=== PATIENT | female | born 1940 | race Caucasian/White ===

== ENCOUNTER 2016-12-12 09:51 | Emergency (ER) | payer OTHER ==
[2016-12-12 10:08] VITALS: BMI 21.3
[2016-12-12] MEDS ORDERED: ASPIRIN 81 MG CHEWABLE TABLETS PO ONE (10:10)
[2016-12-12] MEDS ORDERED: ASPIRIN 81 MG CHEWABLE TABLETS ONE ×2 (10:20→11:27)
--- NOTE | 2016-12-12 10:26 | PDOC ---
[id number] 4d CHEST PAIN Time Seen by Provider: 12/12/16 09:56 History Source: Patient Exam Limitations: No Limitations - History of Present Illness Initial Comments: 12/12/16 10:31 76 -year-old female presents the ED with complaints of midsternal chest pain that began around 2 hours ago while sitting down. Patient describes the pressure as a tightness without radiation to her left or right chest wall. Patient also denies any palpitations, nausea, diaphoresis, or difficulty breathing. Patient states was admitted here last month and had an echocardiogram and is now scheduled for stress test this Sunday at the [facility] cardiology group. Patient currently denies dizziness abdominal pain, or recent change in medication. Patient was given nitroglycerin in route via EMS with no abnormal findings on the 12-lead. Presenting Symptoms: Chest Pain Timing/Duration: reports: constant Severity/Quality: reports: mild, pressure Location: reports: substernal Chest Pain Radiation: reports: no radiation Activities at Onset: reports: none Prior Chest Pain/Cardiac Workup: reports: Echocardiography (october 2016) Nitro Today/Relief: Yes: 0.4 mg x 1, provided by EMS Aspirin Received prior to arrival (Core Measure): Yes: 81 mg x 2 (given in ED) Associated Symptoms: Yes: Chest Pain/pressure Past History - Past Medical History Allergies/Adverse Reactions: Allergies Allergy/AdvReac Type Severity Reaction Status Date / Time morphine Allergy Mild Verified 12/12/16 10:09 aspirin Allergy Verified 12/12/16 10:09 Home Medications: Ambulatory Orders Alprazolam [Xanax] 0.25 mg PO PRN PRN 05/18/14 Ranitidine HCl [Zantac] 150 mg PO BID 08/06/15 Ranitidine [Zantac -] 150 mg PO BID tablet 10/24/16 Nebivolol HCl [Bystolic] 2.5 mg PO DAILY 12/12/16 Anemia: No Asthma: No Cancer: No Cardiac Disorders: Yes (SOB,PALPIATATIONS) CVA: No COPD: No CHF: No Dementia: No Diabetes: No GI Disorders: Yes (ULCER) Disorders: No HTN: Yes Hypercholesterolemia: No Liver Disease: No Psychiatric Problems: Yes (ANXIETY.) Seizures: No Thyroid Disease: No - Surgical History Abdominal Surgery: Yes Appendectomy: No Cardiac Surgery: No Cholecystectomy: No Lung Surgery: No Neurologic Surgery: No Orthopedic Surgery: No - Immunization History Immunization Up to Date: Yes - Psycho/Social/Smoking Cessation Hx Anxiety: Yes Suicidal Ideation: No Smoking Status: No Smoking History: Never smoked Have you smoked in the past 12 months: No Number of Cigarettes Smoked Daily: 0 Information on smoking cessation initiated: No Hx Alcohol Use: No Drug/Substance Use Hx: No Substance Use Type: None Hx Substance Use Treatment: No Patient Lives Alone: No Lives with/in: spouse/SO Cardiac Specific PMH - Complaint Specific PMHX GERD: Yes Pacemaker: No Review of Systems - Review of Systems Able to Perform ROS?: Yes Constitutional: No: Symptoms Reported HEENTM: No: Symptoms Reported Respiratory: No: Symptoms reported Cardiac (ROS): Yes: Chest Pain ABD/GI: No: Symptoms Reported : No: Symptoms Reported Musculoskeletal: No: Symptoms Reported Integumentary: No: Symptoms Reported Neurological: No: Symptoms reported Endocrine: No: Symptoms Reported Hematologic/Lymphatic: No: Symptoms Reported *Physical Exam - Vital Signs Last Vital Signs Temp Pulse Resp BP Pulse Ox 98.1 F 69 16 138/87 99 12/12/16 15:21 12/12/16 15:21 12/12/16 15:21 12/12/16 15:21 12/12/16 15:21 - Physical Exam General Appearance: Yes: Nourished, Appropriately Dressed. No: Apparent Distress HEENT: positive: EOMI, ALBERTINA. negative: Pale Conjunctivae Neck: positive: Supple Respiratory/Chest: positive: Lungs Clear, Normal Breath Sounds. negative: Respiratory Distress, Accessory Muscle Use Cardiovascular: positive: Regular Rhythm, Regular Rate. negative: Murmur Gastrointestinal/Abdominal: positive: Soft. negative: Tenderness Extremity: positive: Normal Capillary Refill. negative: Pedal Edema Integumentary: positive: Normal Color, Warm, Moist Neurologic: positive: Motor Strength 5/5 (ambulatory) Heart Score/ECG Review - History History: Slightly suspicious - Electrocardiogram EKG: Normal - Age Age: >/= 65 - Risk Factors Risk Factors Heart Score: Yes Hx Hypertension, Yes Positive family hx of cardiac disease Based on the list above the patient has:: 1-2 risk factors - Troponin Troponin: </= normal limit - Score Heart Score - Total: 3 #2 ECG reviewed & interpreted by me at: 15:10 General ECG Interpretation: Sinus Rhythm (rate 71) Compared to previous ECG there are: No significant change - ECG Intrepretation Rhythm: Regular Rhythm (Rate 67. No ST depression or elevation. Inverted T waves seen in aVR and lead 3. unchanged from previous) ED Treatment Course - LABORATORY CBC & Chemistry Diagram: 12/12/16 10:17 12/12/16 10:17 - ADDITIONAL ORDERS Additional order review: 12/12/16 10:17 RBC 4.24 MCV 96.8 H MCHC 34.1 RDW 13.1 MPV 8.8 Neutrophils % 75.4 Lymphocytes % 16.7 D Monocytes % 6.1 Eosinophils % 1.0 D Basophils % 0.8 - RADIOLOGY Radiology Studies Ordered: Category Date Time Status CHEST PA & LAT [RAD] Stat Radiology 12/12/16 10:10 Completed - Medications Given in the ED: ED Medications Discontinued Medications Generic Name Dose Route Start Last Admin Trade Name Freq PRN Reason Stop Dose Admin Aspirin 162 mg 12/12/16 10:10 12/12/16 10:18 Asa - PO 12/12/16 10:11 162 mg ONCE ONE Administration Medical Decision Making - Medical Decision Making 12/12/16 10:29 Patient with pain to the midsternal region for the past 2 hours. Patient given nitroglycerin in route. Patient ordered for aspirin here in the ER since patient does not have an allergic reaction to aspirin and was told not to take it since she has PUD. Patient concerning for IN versus ACS. Patient is pending a stress test to be done this Sunday. Case will be discussed with Dr. Roque who saw patient here last month in hospital while she was admitted for similar complaints. 12/12/16 11:37 Dr. Gomez discussed case with Dr. Roque, offset label rewinder who consulted on patient last month and states patient had an atypical presentation with no significant findings on echo and since patient has a scheduled stress test this Sunday, he recommends to perform 2 troponins and EKG. If negative patient may follow-up on Sunday. Laboratory Tests 12/12/16 12/12/16 12/12/16 10:16 10:17 10:17 WBC 5.8 Hgb 14.0 Hct 41.0 Neutrophils % 75.4 INR 1.09 Sodium 144 Potassium 4.1 Chloride 106 Carbon Dioxide 30 Anion Gap 8 BUN 17 D Creatinine 0.7 Random Glucose 96 Magnesium 2.1 Creatine Kinase 29 Troponin I < 0.02 12/12/16 15:09 patient remains asymptomatic. Patient be discharged home to follow-up with cardiology this Sunday. Selected Entries 12/12/16 14:53 Temperature 98 F Pulse Rate [ 75 Right] Respiratory 17 Rate Blood Pressure 131/67 [Right Arm] O2 Sat by Pulse 99 Oximetry (%) Laboratory Tests 12/12/16 14:23 Creatine Kinase 32 Troponin I < 0.02 *DC/Admit/Observation/Transfer Diagnosis at time of Disposition: Chest pain Qualifiers: Chest pain type: other chest pain Qualified Code(s): R07.89 - Other chest pain - Discharge Dispostion Disposition: HOME Condition at time of disposition: Improved - Referrals Referrals: STAFF,NOT ON [Primary Care Provider] - David Roque MD [Staff Physician] - - Patient Instructions Printed Discharge Instructions: DI for Atypical Chest Pain Additional Instructions: Please continue taking her medication as previously prescribed. Please follow-up with offset label rewinder this Sunday for stress test. If your symptoms return or worsen please come to the ED immediately.
[2016-12-12 10:52] LABS: BASOPHIL 0.8 % (0-2.0); MCHC 34.1 g/dl (32.0-36.0); MEAN CELL VOLUME 96.8 fl (80-96); MEAN PLT VOLUME 8.8 fl (7.5-11.1); NEUTROPHILS 75.4 % (42.8-82.8); PLATELET COUNT 131 K/MM3 (134-434); RDW 13.1 % (11.6-15.6); WHITE BLOOD COUNT 5.8 K/mm3 (4.0-10.0)
[2016-12-12 11:22] LABS: ALBUMIN 3.5 g/dl (3.4-5.0); ANION GAP 8 (8-16); BILIRUBIN,TOTAL 0.4 mg/dL (0.2-1.0); CALCIUM 8.9 mg/dL (8.5-10.1); CO2 30 mmol/L (21-32); CREATININE 0.7 mg/dL (0.55-1.02); GLUCOSE,RANDOM 96 mg/dL (74-106); MAGNESIUM 2.1 mg/dL (1.8-2.4); SGOT/AST 18 U/L (15-37); SGPT/ALT 24 U/L (12-78)
[2016-12-12 11:23] LABS: INR 1.09 (0.82-1.09)
[2016-12-12 11:25] LABS: ALK PHOS 61 U/L (45-117); TROPONIN I < 0.02 ng/ml (0.00-0.05)
[2016-12-12 15:04] LABS: TROPONIN I < 0.02 ng/ml (0.00-0.05)
[2016-12-12 15:22] VITALS: BP 138/87; PULSE 69; TEMP 98.1
--- NOTE | 2016-12-12 23:11 | EKG ---
Test Reason : Blood Pressure : / mmHG Vent. Rate : 071 BPM Atrial Rate : 071 BPM P-R Int : 158 ms QRS Dur : 082 ms QT Int : 402 ms P-R-T Axes : 045 -12 006 degrees QTc Int : 436 ms NORMAL SINUS RHYTHM NORMAL ECG WHEN COMPARED WITH ECG OF 12-DEC-2016 10:00, NO SIGNIFICANT CHANGE WAS FOUND Confirmed by DL PRATT MD ([id number]) on 12/12/2016 11:10:44 PM Referred By: Confirmed By:DL PRATT MD
--- NOTE | 2016-12-12 23:16 | EKG ---
Test Reason : Blood Pressure : / mmHG Vent. Rate : 067 BPM Atrial Rate : 067 BPM P-R Int : 150 ms QRS Dur : 080 ms QT Int : 408 ms P-R-T Axes : 038 -09 -04 degrees QTc Int : 431 ms NORMAL SINUS RHYTHM NONSPECIFIC ST AND T WAVE ABNORMALITY ABNORMAL ECG WHEN COMPARED WITH ECG OF 23-OCT-2016 10:04, PREMATURE VENTRICULAR COMPLEX AND PREMATURE ATRIAL COMPLES ARE NOT SEEN Confirmed by SANTA HARDY, DL ([id number]) on 12/12/2016 11:16:14 PM Referred By: Confirmed By:DL PRATT MD
== END 2016-12-12 15:49 | disposition home or self-care (01) ==
LOC: JER 09:51
DX: R07.89 Other chest pain (principal); F41.9 Anxiety disorder, unspecified; I10 Essential (primary) hypertension
CPT/HCPCS: 36415; 71020-TC; 80053; 82550; 83735; 84484; 85025; 85610; 93005; 93010; 99285-25

== ENCOUNTER 2017-07-29 12:10 | Emergency (ER) | payer OTHER ==
[2017-07-29 12:29] VITALS: BP 138/73; PULSE 67; TEMP 99; BMI 21.9
--- NOTE | 2017-07-29 13:19 | PDOC ---
History of Present Illness - General Chief Complaint: Cold Symptoms Stated Complaint: SORE THROAT, WEAKNESS Time Seen by Provider: 07/29/17 12:47 History Source: Patient Exam Limitations: No Limitations - History of Present Illness Initial Comments: 07/29/17 13:17 77 yr female c/o sore throat chills for 4 days with burning on urination. Pt denies nvd no cough or sob. Severity: reports: mild Past History - Past Medical History Allergies/Adverse Reactions: Allergies Allergy/AdvReac Type Severity Reaction Status Date / Time morphine Allergy Mild Verified 07/29/17 12:25 aspirin Allergy Verified 07/29/17 12:25 Home Medications: Ambulatory Orders Alprazolam [Xanax] 0.25 mg PO PRN PRN 05/18/14 Ranitidine HCl [Zantac] 150 mg PO BID 08/06/15 Ranitidine [Zantac -] 150 mg PO BID tablet 10/24/16 Nebivolol HCl [Bystolic] 5 mg PO DAILY 12/12/16 Ondansetron [Zofran Odt -] 4 mg SL TID PRN #12 od.tablet 07/29/17 Anemia: No Asthma: No Cancer: No Cardiac Disorders: Yes (SOB,PALPIATATIONS) CVA: No COPD: No CHF: No Dementia: No Diabetes: No GI Disorders: Yes (ULCER) Disorders: No HTN: Yes Hypercholesterolemia: No Liver Disease: No Psychiatric Problems: Yes (ANXIETY.) Seizures: No Thyroid Disease: No - Surgical History Abdominal Surgery: Yes Appendectomy: No Cardiac Surgery: No Cholecystectomy: No Lung Surgery: No Neurologic Surgery: No Orthopedic Surgery: No - Immunization History Immunization Up to Date: Yes - Psycho/Social/Smoking Cessation Hx Anxiety: Yes Suicidal Ideation: No Smoking Status: No Smoking History: Never smoked Have you smoked in the past 12 months: No Number of Cigarettes Smoked Daily: 0 Hx Alcohol Use: No Drug/Substance Use Hx: No Substance Use Type: None Hx Substance Use Treatment: No Respiratory Specific PMHX - Complaint Specific PMHX Angina: No Bronchitis: No Pneumonia: No Pulmonary Embolus: No TB (Tuberculosis): No Review of Systems - Review of Systems Able to Perform ROS?: Yes Is the patient limited Urdu proficient: No Constitutional: Yes: Symptoms Reported, Fever HEENTM: Yes: Symptoms Reported, Throat Pain Respiratory: No: Symptoms reported Cardiac (ROS): No: Symptoms Reported ABD/GI: No: Symptoms Reported : No: Symptoms Reported Musculoskeletal: No: Symptoms Reported Integumentary: No: Symptoms Reported Neurological: No: Symptoms reported *Physical Exam - Vital Signs Last Vital Signs Temp Pulse Resp BP Pulse Ox 99 F 67 19 138/73 97 07/29/17 12:25 07/29/17 12:25 07/29/17 12:25 07/29/17 12:25 07/29/17 12:25 - Physical Exam General Appearance: Yes: Nourished, Appropriately Dressed HEENT: positive: EOMI, ALBERTINA, Normal ENT Inspection, Pharyngeal Erythema. negative: Tonsillar Exudate, Tonsillar Erythema Neck: positive: Supple. negative: Tender Respiratory/Chest: positive: Lungs Clear, Normal Breath Sounds Cardiovascular: positive: Regular Rhythm, Regular Rate Gastrointestinal/Abdominal: positive: Normal Bowel Sounds, Soft. negative: Tender Musculoskeletal: positive: Normal Inspection Extremity: positive: Normal Capillary Refill, Normal Inspection, Normal Range of Motion Integumentary: positive: Normal Color, Dry, Warm Neurologic: positive: Fully Oriented, Alert, Normal Mood/Affect, Normal Response , Motor Strength 5/5 *DC/Admit/Observation/Transfer Diagnosis at time of Disposition: Viral illness - Discharge Dispostion Disposition: HOME Condition at time of disposition: Good - Prescriptions Prescriptions: Ondansetron [Zofran Odt -] 4 mg SL TID PRN #12 od.tablet PRN Reason: Nausea - Patient Instructions Printed Discharge Instructions: How to Avoid a Cold or Flu, DI for Common Cold Additional Instructions: gargle with warm salt water 4-5 times a day take tylenol as directed for pain bland diet as tolerated if your stomach bothers you increase vitamin c and zinc in your diet follow with your doctor in 3-4 days if any worsening symptoms negative rapid strep
[2017-07-29 13:36] LABS: URINE APPEARANCE CLEAR; URINE BILIRUBIN NEGATIVE (NEGATIVE); URINE BLOOD 1+ (NEGATIVE); URINE COLOR LTYELLOW; URINE GLUCOSE (UA) NEGATIVE (NEGATIVE); URINE KETONE NEGATIVE (NEGATIVE); URINE LEUK ESTERASE 1+ (NEGATIVE); URINE NITRITE NEGATIVE (NEGATIVE); URINE PROTEIN NEGATIVE (NEGATIVE); URINE UROBILINOGEN NEGATIVE mg/dL (0.2-1.0)
[2017-07-29 13:40] LABS: URINE RBC <1 /hpf (0-3); URINE WBC 4 /hpf (3-5)
[2017-07-29] MEDS ORDERED: ONDANSETRON *ODT* 4 MG TABLET SL ONE (14:15)
[2017-07-29] MEDS ORDERED: ONDANSETRON *ODT* 4 MG TABLET ONE (14:16)
== END 2017-07-29 14:25 | disposition home or self-care (01) ==
LOC: JERFT 12:10
DX: B34.9 Viral infection, unspecified (principal); I10 Essential (primary) hypertension; F41.9 Anxiety disorder, unspecified
CPT/HCPCS: 81003; 81015; 87070; 87086; 87430; 99281-25

== ENCOUNTER 2017-08-02 06:29 | Day surgery (SDC) | payer OTHER ==
[2017-07-30 16:42] VITALS: BMI 21.1
[2017-08-02] MEDS ORDERED: BUPIVACAINE HCL/PF 0.5% (5MG/ML) 10 ML VIAL ONE (07:36)
[2017-08-02] MEDS ORDERED: MIDAZOLAM HCL 2 MG/2 ML SINGLE DOSE VIAL ONE ×2 (07:53)
[2017-08-02] MEDS ORDERED: SUCCINYLCHOLINE CHLORIDE 200 MG/10 ML VIAL ONE (07:58)
[2017-08-02] MEDS ORDERED: PROPOFOL 20 ML ONE (07:58)
[2017-08-02] MEDS ORDERED: LIDOCAINE HCL/PF 2% SDV 5ML VIAL ONE ×2 (07:58→08:19)
[2017-08-02] MEDS ORDERED: ceFAZolin SODIUM 1 GM VIAL IVPB ONE (08:05)
[2017-08-02] MEDS ORDERED: DEXAMETHASONE SOD PHOSPHATE 4 MG/1 ML VIAL ONE (08:19)
[2017-08-02] MEDS ORDERED: ceFAZolin SODIUM 1 GM VIAL ONE (08:19)
[2017-08-02] MEDS ORDERED: BUPIVACAINE HCL/PF 0.5% (5MG/ML) 10 ML VIAL IJ ONE ×2 (08:21→08:48)
--- NOTE | 2017-08-02 08:55 | OP ---
Operative Note - Note: Operative Date: 08/02/17 Pre-Operative Diagnosis: right knee medial and lateral meniscus tear, OA Operation: right knee partial medial and lateral meniscectomy, debridement chondroplasty Post-Operative Diagnosis: Same as Pre-op Surgeon: Thaddeus Apodaca Anesthesiologist/MANAGER COMPANY: Concha Tilley MD Anesthesia: General, Local Specimens Removed: shavings Estimated Blood Loss (mls): 50 Drains, Volume Out (mls): 0 Blood Volume Replaced (mls): 0 Fluid Volume Replaced (mls): 500 Operative Report Dictated: Yes
--- NOTE | 2017-08-02 08:57 | HP ---
Satellite [facility] - Chief Complaint Chief Complaint: right knee pain History Source: Patient Limitations to Obtaining History: No Limitations - Past Medical History Allergies/Adverse Reactions: Allergies Allergy/AdvReac Type Severity Reaction Status Date / Time morphine Allergy Mild Verified 07/30/17 16:30 aspirin Allergy Verified 07/30/17 16:30 SALES STOCK ASSOCIATE: Yes: Migraine Cardiovascular: Yes: CAD (non-obs cath 2007), HTN, Hyperlipdemia, Other (PVCs) Gastrointestinal: Yes: Other (PUD) - Current Medications Current Medications: Home Medications Medication Instructions Recorded Alprazolam [Xanax] 0.25 mg PO PRN PRN 05/18/14 Nebivolol HCl [Bystolic] 5 mg PO DAILY 12/12/16 Pantoprazole Sodium [Protonix] 40 mg PO DAILY 07/30/17 Satellite Physical Exam - Physical Examination Vital Signs: Vital Signs Period Temp Pulse Resp BP Sys/[place] Pulse Ox Last 24 Hr 98.2 F 80 16 133/70 98 General Appearance: Well Nourished ENT: Clear Lung: Clear to auscultation Heart: Regular rate & rhythm Breasts: Soft Abdomen: Soft Extremities: No edema Satellite Impression/Plan - Impression/Plan Impression: right knee MM and LM tear, OA Operative Procedure: right knee arthroscopy, partial medial and lateral meniscectomy, debridement chondroplasty Date to be Performed: 08/02/17
[2017-08-02] MEDS ORDERED: ONDANSETRON 4 MG/2 ML VIAL IVPUSH PRN (09:08)
[2017-08-02] MEDS ORDERED: PROMETHAZINE HCL 25 MG/1 ML VIAL IVPUSH PRN (09:08)
[2017-08-02] MEDS ORDERED: oxyCODONE HCL 5 MG TABLET PO PRN (09:08)
[2017-08-02] MEDS ORDERED: LACTATED RINGERS SOLUTION 1,000 ML IV SCH (09:15)
[2017-08-02 10:11] VITALS: TEMP 97.4
[2017-08-02 11:35] VITALS: BP 150/67; PULSE 90
--- NOTE | 2017-08-02 11:58 | OP ---
DATE OF OPERATION: 08/02/2017 PREOPERATIVE DIAGNOSIS: Right knee pain, medial and lateral meniscus tear and osteoarthritis. POSTOPERATIVE DIAGNOSIS: Right knee pain, medial and lateral meniscus tear and osteoarthritis. PROCEDURE: Right knee arthroscopy, partial medial and lateral meniscectomy, and debridement with chondroplasty. SURGEON: Thaddeus Apodaca MD VEGETABLE PREPARER: None. ANESTHESIA: Dr. Tilley, LMA anesthesia, 20 mL 0.0.5% Marcaine. DRAINS: None. COMPLICATIONS: None. SPECIMEN: Arthroscopic shavings. BLOOD LOSS: 50 mL. BLOOD GIVEN: None. FLUID REPLACEMENT: 500 mL. INDICATIONS: This patient is a 77-year-old female with a preoperative diagnosis of right knee pain and medial and lateral meniscus tear and osteoarthritis. After understanding the potential risks, complications, alternatives, and benefits to surgery versus nonsurgical treatment, the patient elected to undergo this procedure. She understands that she will not get complete relief of her pain because of the osteoarthritis. She still may need other surgery including a partial or total knee replacement. DESCRIPTION OF PROCEDURE: The patient was brought to the operating room. Peripheral IV placed. IV sedation given. Then 1 g of IV Ancef was given. LMA anesthesia was induced. Ample padding was placed around the right thigh. The patient was placed in the C-clamp leg ivy with a Styrofoam ring. The right lower extremity was prepped and draped in usual sterile fashion, elevated, exsanguinated with an Esmarch bandage and tourniquet inflated to 275 mmHg. The superior and medial outflow portal was established. Lateral port was established. Under direct visualization, the medial portal was established with a spinal needle. Diagnostic arthroscopy was performed. In the medial component, the patient was seen to have a complex tear of the body and posterior horn of the medial meniscus. This was debrided with the straight vascular forceps, the right biter, and the curved shaver. Photographs were taken before and after. The patient had grade 1 chondromalacia of the medial and tibial plateau but areas of grade 3 changes at the medial femoral condyle. The intercondylar notch looked good. In the lateral compartment, the patient had a complex tear of most of the lateral meniscus. This was debrided, and in the end, perhaps 25% of the lateral meniscus remained. It was completely shredded prior to meniscectomy. This also revealed osteoarthritis of the lateral compartment grade 2. In the patellofemoral joint, there was a lot of synovium. This was debrided, and this revealed grade 4 osteoarthritis of the femoral trochlea and grade 1 changes underneath the patella. Gentle debridement chondroplasty was performed. The area was copiously irrigated and washed out. All debris and excess saline was removed. This patient would not be a candidate for the partial knee replacement. She would need the total knee replacement. The arthroscopy portal was closed with 3-0 nylon sutures. The area was then washed and dried and covered with Xeroform, 4x4 gauze, Webril, and an Kilo bandage. Tourniquet was taken down after a total tourniquet time of 25 minutes. There were no complications during the case. The patient was extubated and brought to the ambulatory recovery in stable condition. Iliana [id number]
--- NOTE | 2017-08-03 13:37 | PATH ---
Surgical Pathology Report Patient Name: FADIA ETIENNE [facility]. Rec. #: [id number] /Age/Gender: 1940 (Age: 77) / F Account: [id number] Location: [facility] SUR[facility]ICAL Taken: 08/02/2017 Received: 08/02/2017 Reported: 08/03/2017 Physicians: Thaddeus Apodaca M.D. Specimen(s) Received RIGHT KNEE SHAVINGS Clinical History Right meniscus tear Final Diagnosis KNEE, RIGHT, ARTHROSCOPIC SHAVING: FIBROCARTILAGE WITH MYXOID DEGENERATIVE CHANGES, ALONG WITH PORTIONS OF SYNOVIUM WITH CHRONIC INFLAMMATION AND HYALINE CARTILAGE. Electronically Signed Macario Aldridge M.D. Gross Description Received in formalin, labeled "right knee shavings," is a 4.5 x 4.0 x 0.4 cm. aggregate of king-yellow soft tissue fragments. A career services representative portion is submitted in one cassette. /08/02/201708/02/2017
== END 2017-08-02 11:50 | disposition home or self-care (01) ==
LOC: JASU-SURG 06:29
PROVIDERS: ATTEND Orthopaedic Surgery
PROC: 0SBC4ZZ Excision of Right Knee Joint, Percutaneous Endoscopic Approach (ICD-10-PCS; 2017-08-02)
PROC: 0SBC4ZZ Excision of Right Knee Joint, Percutaneous Endoscopic Approach (ICD-10-PCS; principal; 2017-08-02 08:00)
DX: S83.281A Other tear of lateral meniscus, current injury, right knee, initial encounter (principal); S83.241A Other tear of medial meniscus, current injury, right knee, initial encounter; X58.XXXA Exposure to other specified factors, initial encounter; Y93.9 Activity, unspecified; Y92.9 Unspecified place or not applicable; Y99.9 Unspecified external cause status; M17.11 Unilateral primary osteoarthritis, right knee
CPT/HCPCS: 88304-TC; 94760; 97116-GP

== ENCOUNTER 2017-12-09 12:19 | Emergency (ER) | payer OTHER ==
[2017-12-09 12:25] VITALS: BP 152/81; PULSE 81; TEMP 98.6; BMI 20.5
--- NOTE | 2017-12-09 13:20 | PDOC ---
History of Present Illness - General Chief Complaint: Sore Throat Stated Complaint: THROAT PAIN Time Seen by Provider: 12/09/17 12:55 History Source: Patient Exam Limitations: No Limitations - History of Present Illness Initial Comments: 12/09/17 13:35 37-year-old female complaining of left ear pain and lower left throat pain. Patient was seen by her PCP a few days ago was given amoxicillin but states has been unable to take it since it is causing her GI upset and decided come to the ER for further evaluation. Patient denies fever, chills but states left ear pain and left throat pain has subsided slightly since onset. Patient denies neck stiffness, difficulty swallowing, change in appetite. Timing/Duration: reports: other (5 days) Severity: reports: mild Associated Symptoms: reports: earache, sore throat Past History - Travel Traveled outside of the country in the last 30 days: No - Past Medical History Allergies/Adverse Reactions: Allergies Allergy/AdvReac Type Severity Reaction Status Date / Time morphine Allergy Mild Verified 12/09/17 12:25 aspirin Allergy Verified 12/09/17 12:25 Home Medications: Ambulatory Orders Alprazolam [Xanax] 0.25 mg PO PRN PRN 05/18/14 Nebivolol HCl [Bystolic] 5 mg PO DAILY 12/12/16 Clopidogrel Bisulfate [Plavix -] 75 mg PO DAILY #30 tablet 09/28/17 Nitroglycerin Sublingual [Nitrostat -] 0.3 mg SL [id number] #1 btl 09/28/17 Anemia: No Asthma: No Cancer: No Cardiac Disorders: Yes (SOB,PALPIATATIONS) CVA: No COPD: No CHF: No Dementia: No Diabetes: No GI Disorders: Yes (ULCER) Disorders: No HTN: Yes Hypercholesterolemia: No Liver Disease: No Psychiatric Problems: Yes (ANXIETY.) Seizures: No Thyroid Disease: No - Surgical History Abdominal Surgery: No Appendectomy: No Cardiac Surgery: No Cholecystectomy: No Lung Surgery: No Neurologic Surgery: No Orthopedic Surgery: No - Immunization History Immunization Up to Date: Yes - Suicide/Smoking/Psychosocial Hx Smoking Status: No Smoking History: Never smoked Have you smoked in the past 12 months: No Number of Cigarettes Smoked Daily: 0 Hx Alcohol Use: No Drug/Substance Use Hx: No Substance Use Type: None Hx Substance Use Treatment: No Patient Lives Alone: No Lives with/in: spouse/SO Respiratory Specific PMHX - Complaint Specific PMHX Angina: No Bronchitis: No Pneumonia: No Pulmonary Embolus: No TB (Tuberculosis): No Review of Systems - Review of Systems Able to Perform ROS?: No Constitutional: No: Symptoms Reported HEENTM: Yes: Ear Pain, Throat Pain Respiratory: No: Symptoms reported Cardiac (ROS): No: Symptoms Reported ABD/GI: No: Symptoms Reported : No: Symptoms Reported Musculoskeletal: No: Symptoms Reported Integumentary: No: Symptoms Reported Neurological: No: Symptoms reported *Physical Exam - Vital Signs Last Vital Signs Temp Pulse Resp BP Pulse Ox 98.6 F 81 18 152/81 100 12/09/17 12:21 12/09/17 12:21 12/09/17 12:21 12/09/17 12:21 12/09/17 12:21 - Physical Exam General Appearance: Yes: Nourished, Appropriately Dressed. No: Apparent Distress HEENT: positive: EOMI, ALBERTINA, Pharyngeal Erythema (mild left), TM Erythema (mild left). negative: Tonsillar Exudate, Tonsillar Erythema Neck: positive: Normal Thyroid, Supple. negative: Lymphadenopathy (R), Lymphadenopathy (L) Respiratory/Chest: positive: Lungs Clear, Normal Breath Sounds. negative: Respiratory Distress, Accessory Muscle Use Cardiovascular: positive: Regular Rhythm, Regular Rate. negative: Murmur Gastrointestinal/Abdominal: positive: Soft. negative: Tenderness Integumentary: positive: Normal Color, Warm, Moist Neurologic: positive: Motor Strength 5/5 (ambulatory) Medical Decision Making - Medical Decision Making 12/09/17 13:37 Pt here for 2nd opinion for left ear and throat pain. Pt took 2 days of amoxicillin but stopped due to gi upset. Pt on exam with mild erythema to left tm and pharyngeal region. Rapid strep sent 12/09/17 13:57 Rapid strep negative. Patient will be discharged home with supportive care including warm salt water gargles, Motrin for discomfort and soft nonabrasive foods. *DC/Admit/Observation/Transfer Diagnosis at time of Disposition: Sore throat (viral) - Discharge Dispostion Disposition: HOME Condition at time of disposition: Good - Referrals - Patient Instructions Printed Discharge Instructions: Sore Throat Additional Instructions: I recommend warm salt water gargles, Motrin for discomfort and soft nonabrasive foods. - Post Discharge Activity
== END 2017-12-09 14:00 | disposition home or self-care (01) ==
LOC: JER 12:19 → JERFT 12:19
DX: J02.9 Acute pharyngitis, unspecified (principal); B97.89 Other viral agents as the cause of diseases classified elsewhere; I10 Essential (primary) hypertension; F41.9 Anxiety disorder, unspecified; Z87.19 Personal history of other diseases of the digestive system
CPT/HCPCS: 87070; 87430; 99281-25

== ENCOUNTER 2018-01-30 08:04 | Emergency (ER) | payer OTHER ==
[2018-01-30 08:10] VITALS: BMI 20.5
--- NOTE | 2018-01-30 08:17 | PDOC ---
History of Present Illness - General Chief Complaint: Pain, Acute Stated Complaint: ABDOMINAL PAIN Time Seen by Provider: 01/30/18 08:17 - History of Present Illness Initial Comments: 77 year old female with PMH of anxiety, GERD, small hiatal hernia, and HTN who presents to the ED with lower abdominal pain since this morning at 8 AM. States that she has had some urinary frequency with some discomfort as well. Had some slight nausea today but denies vomiting, diarrhea, constipation, fevers, chills , constipation, or other symptoms. 01/30/18 10:09 Past History - Past Medical History Allergies/Adverse Reactions: Allergies Allergy/AdvReac Type Severity Reaction Status Date / Time morphine Allergy Mild Verified 01/30/18 08:06 aspirin Allergy Verified 01/30/18 08:06 Home Medications: Ambulatory Orders Alprazolam [Xanax] 0.25 mg PO PRN PRN 05/18/14 Nebivolol HCl [Bystolic] 5 mg PO DAILY 12/12/16 Clopidogrel Bisulfate [Plavix -] 75 mg PO DAILY #30 tablet 09/28/17 Nitroglycerin Sublingual [Nitrostat -] 0.3 mg SL [id number] #1 btl 09/28/17 Ciprofloxacin/Ciprofloxa HCl [Cipro Xr 500 mg Tablet] 500 mg PO DAILY #3 tbmp.24hr 01/30/18 Anemia: No Asthma: No Cancer: No Cardiac Disorders: Yes (SOB,PALPIATATIONS) CVA: No COPD: No CHF: No Dementia: No Diabetes: No GI Disorders: Yes (ULCER) Disorders: No HTN: Yes Hypercholesterolemia: No Liver Disease: No Psychiatric Problems: Yes (ANXIETY.) Seizures: No Thyroid Disease: No - Surgical History Abdominal Surgery: No Appendectomy: No Cardiac Surgery: No Cholecystectomy: No Lung Surgery: No Neurologic Surgery: No Orthopedic Surgery: No - Immunization History Immunization Up to Date: Yes - Suicide/Smoking/Psychosocial Hx Smoking Status: No Smoking History: Never smoked Have you smoked in the past 12 months: No Number of Cigarettes Smoked Daily: 0 Hx Alcohol Use: No Drug/Substance Use Hx: No Substance Use Type: None Hx Substance Use Treatment: No Review of Systems - Review of Systems Constitutional: No: Chills, Diaphoresis, Fever HEENTM: No: Blurred Vision Respiratory: No: Cough, Orthopnea, Shortness of Breath Cardiac (ROS): No: Chest Pain, Irregular Heart Rate ABD/GI: Yes: Nausea. No: Constipated, Diarrhea, Vomiting : Yes: Burning, Dysuria. No: Discharge, Hematuria Integumentary: No: Bruising, Change in Color, Erythema, Flushing, Lesions, Lumps Neurological: No: Headache, Numbness, Paresthesia *Physical Exam - Vital Signs Last Vital Signs Temp Pulse Resp BP Pulse Ox 98.5 F 80 19 153/80 97 01/30/18 08:06 01/30/18 08:06 01/30/18 08:06 01/30/18 08:06 01/30/18 08:06 - Physical Exam General Appearance: Yes: Nourished, Appropriately Dressed. No: Apparent Distress HEENT: positive: EOMI, [place], Normal ENT Inspection, Normal Voice Neck: positive: Trachea midline, Normal Thyroid, Supple. negative: Tender, Rigid Respiratory/Chest: positive: Lungs Clear, Normal Breath Sounds. negative: Chest Tender, Respiratory Distress, Accessory Muscle Use Cardiovascular: positive: Regular Rhythm, Regular Rate Gastrointestinal/Abdominal: positive: Normal Bowel Sounds, Flat, Soft. negative : Tender Musculoskeletal: positive: Normal Inspection. negative: Decreased Range of Motion Extremity: positive: Normal Capillary Refill, Normal Inspection, Normal Range of Motion. negative: Tender Integumentary: positive: Normal Color, Dry, Warm Neurologic: positive: Fully Oriented, Alert, Normal Mood/Affect, Normal Response , Motor Strength 5/5 ED Treatment Course - LABORATORY CBC & Chemistry Diagram: 01/30/18 09:10 01/30/18 09:10 Medical Decision Making - Medical Decision Making 77 year old female with suprapubic pain, benign abdominal exam, stable vitals, afebrile, and 1+ leuk esterase on her UA. This is concerning for urinary tract infection so will treat with ciprofloxacin 500 ER QD x 3 days. 01/30/18 10:58 *DC/Admit/Observation/Transfer Diagnosis at time of Disposition: Cystitis - Discharge Dispostion Disposition: HOME Condition at time of disposition: Improved Admit: No - Prescriptions Prescriptions: Ciprofloxacin/Ciprofloxa HCl [Cipro Xr 500 mg Tablet] 500 mg PO DAILY #3 tbmp.24hr - Referrals Referrals: ON STAFF,NOT [Primary Care Provider] - Waylon Cho MD [Staff Physician] - - Patient Instructions Printed Discharge Instructions: DI for Acute Cystitis Additional Instructions: You have an infection in your urine, please take the antibiotics as described. Please return to the ED if your symptoms do not improve in a few days. Please follow up with Dr. Cho for your primary care needs. - Post Discharge Activity
[2018-01-30 09:23] LABS: BASO % 0.9 % (0-2.0); EOS % 1.4 % (0-4.5); HEMATOCRIT 41.3 % (32.4-45.2); HEMOGLOBIN 14.1 GM/dL (10.7-15.3); LYMPH % 17.3 % (8-40); MCH 32.9 pg (25.7-33.7); MCHC 34.2 g/dl (32.0-36.0); MEAN CELL VOLUME 96.1 fl (80-96); MEAN PLT VOLUME 8.8 fl (7.5-11.1); MONO % 5.7 % (3.8-10.2); NEUT % 74.7 % (42.8-82.8); PLATELET COUNT 151 K/MM3 (134-434); RDW 12.9 % (11.6-15.6); WHITE BLOOD COUNT 5.2 K/mm3 (4.0-10.0)
[2018-01-30 09:26] LABS: URINE APPEARANCE CLEAR; URINE BILIRUBIN NEGATIVE (NEGATIVE); URINE BLOOD 1+ (NEGATIVE); URINE COLOR STRAW; URINE GLUCOSE (UA) NEGATIVE (NEGATIVE); URINE KETONE NEGATIVE (NEGATIVE); URINE NITRITE NEGATIVE (NEGATIVE); URINE PROTEIN NEGATIVE (NEGATIVE); URINE UROBILINOGEN NEGATIVE mg/dL (0.2-1.0)
[2018-01-30 09:32] LABS: URINE LEUK ESTERASE 1+ (NEGATIVE)
[2018-01-30 09:33] LABS: URINE MUCUS RARE
--- NOTE | 2018-01-30 09:54 | EKG ---
Test Reason : Blood Pressure : / mmHG Vent. Rate : 066 BPM Atrial Rate : 066 BPM P-R Int : 150 ms QRS Dur : 074 ms QT Int : 408 ms P-R-T Axes : 043 -12 -15 degrees QTc Int : 427 ms POOR DATA QUALITY, INTERPRETATION MAY BE ADVERSELY AFFECTED NORMAL SINUS RHYTHM NONSPECIFIC ST AND T WAVE ABNORMALITY ABNORMAL ECG WHEN COMPARED WITH ECG OF 27-SEP-2017 13:00, NONSPECIFIC T WAVE ABNORMALITY NOW EVIDENT IN LATERAL LEADS Confirmed by STEFFANY CONRAD MD ([id number]) on 01/30/2018 9:53:59 AM Referred By: Confirmed By:STEFFANY CONRAD MD
[2018-01-30 09:57] LABS: ALBUMIN 3.8 g/dl (3.4-5.0); ALK PHOS 68 U/L (45-117); ANION GAP 10 (8-16); BILIRUBIN,TOTAL 0.4 mg/dL (0.2-1.0); BLOOD UREA NITROGEN 20 mg/dL (7-18); CALCIUM 8.9 mg/dL (8.5-10.1); CHLORIDE 104 mmol/L (98-107); CO2 27 mmol/L (21-32); CREATININE 0.7 mg/dL (0.55-1.02); GLUCOSE,RANDOM 96 mg/dL (74-106); SGOT/AST 18 U/L (15-37); SGPT/ALT 15 U/L (12-78); SODIUM 141 mmol/L (136-145); TOT PROT 6.7 g/dl (6.4-8.2)
[2018-01-30] MEDS ORDERED: RANITIDINE HCL 150 MG TABLET (FP) PO ONE (10:23)
[2018-01-30] MEDS ORDERED: MAG HYDROX/AL HYDROX/SIMETH 30 ML UNIT-DOSE CUP PO ONE (10:24)
--- NOTE | 2018-01-30 10:55 | PDOC ---
Attending Attestation - Resident Resident Name: Lynn Valdes - ED Attending Attestation I have performed the following: I have examined & evaluated the patient, The case was reviewed & discussed with the resident, I agree w/resident's findings & plan, Exceptions are as noted - HPI HPI: 01/30/18 10:55 """The patient is a 77 year old female, with a significant past medical history of GERD and hiatal hernia, who presents to the emergency department with suprapubic pain, burning on urination, and vaginal itching today. She reports the pain is central to her suprapubic region. She endorses urinary frequency as well as dysuria. Denies F/C. Denies unilateral abdominal pain. The patient denies chest pain, shortness of breath, headache and dizziness. The patient denies fever, chills, nausea, vomit, diarrhea and constipation. The patient denies dysuria, frequency, urgency and hematuria. Allergies: morphine, aspirin Social history: Pt denies toxic habits PCP - """ - Physicial Exam PE: 01/30/18 10:56 "GENERAL: Awake, alert, and fully oriented, in no acute distress HEAD: No signs of trauma EYES: PERRLA, EOMI, sclera anicteric, conjunctiva clear ENT: Auricles normal inspection, hearing grossly normal, nares patent, oropharynx clear without exudates. Moist mucosa NECK: Nontender, no stepoffs, Normal ROM, supple, no lymphadenopathy, JVD, or masses LUNGS: Breath sounds equal, clear to auscultation bilaterally. No wheezes, and no crackles HEART: Regular rate and rhythm, normal S1 and S2, no murmurs, rubs or gallops ABDOMEN: Soft, nontender, normoactive bowel sounds. No guarding, no rebound. No masses EXTREMITIES: Normal range of motion, no edema. No clubbing or cyanosis. No cords, erythema, or tenderness NEUROLOGICAL: Cranial nerves II through XII intact. 5/5 strength and sensation in all extremities, Normal speech, normal gait, normal cerebellar function SKIN: Warm, Dry, normal turgor, no rashes or lesions noted. " - Medical Decision Making 01/30/18 10:56 77 F with suprapubic pain, dysuria, and urinary frequency. Pt with normal vitals and benign abdominal exam in ER. Likely UTI. - Labs, UA, UCx 01/30/18 11:52 UA with +LE. Given pt's symptoms, will tx for UTI at this time. Pt reassessed and has no pain at this time. Pt well appearing with normal vitals, clinically stable for DC. I discussed the physical exam findings, ancillary test results and final diagnoses with the patient. I answered all of the patient's questions. The patient was satisfied with the care received and felt comfortable with the discharge plan and treatment plan. The patient agrees to follow up with the primary care physician within 24-72 hours.
[2018-01-30] MEDS ORDERED: CIPROFLOXACIN 500 MG TABLET (RESTRICTED TO ID) PO ONE (11:10)
[2018-01-30] MEDS ORDERED: MAG HYDROX/AL HYDROX/SIMETH 30 ML UNIT-DOSE CUP ONE (11:22)
[2018-01-30] MEDS ORDERED: RANITIDINE HCL 150 MG TABLET (FP) ONE (11:22)
[2018-01-30 12:05] VITALS: BP 138/72; PULSE 69
[2018-01-30 12:06] VITALS: TEMP 98.6
== END 2018-01-30 12:06 | disposition home or self-care (01) ==
LOC: JER 08:04
DX: N30.90 Cystitis, unspecified without hematuria (principal); I10 Essential (primary) hypertension; F41.9 Anxiety disorder, unspecified
CPT/HCPCS: 36415; 80053; 81003; 81015; 85025; 87086; 93005; 93010; 99285-25

== ENCOUNTER 2019-07-15 13:19 | Emergency (ER) | payer OTHER ==
[2019-07-15 13:31] VITALS: BP 163/61; PULSE 78; TEMP 98.6; BMI 19.7
[2019-07-15 14:05] LABS: EPI CELLS 0.9 /HPF (0-5/HPF); HYALINE CASTS 0 /lpf (0-8); PH,URINE 6.5 (5.0-8.0); URINE APPEARANCE CLEAR; URINE BILIRUBIN NEGATIVE (NEGATIVE); URINE COLOR YELLOW; URINE GLUCOSE (UA) NEGATIVE (NEGATIVE); URINE KETONE NEGATIVE (NEGATIVE); URINE LEUK ESTERASE 1+ (NEGATIVE); URINE NITRITE NEGATIVE (NEGATIVE); URINE PROTEIN NEGATIVE (NEGATIVE); URINE RBC 1 /hpf (0-4); URINE UROBILINOGEN 0.2 mg/dL (0.2-1.0); URINE WBC 5 /hpf (0-5)
--- NOTE | 2019-07-15 14:22 | PDOC ---
History of Present Illness - General Chief Complaint: Urinary Problem Stated Complaint: R/O UTI Time Seen by Provider: 07/15/19 13:34 - History of Present Illness Initial Comments: 07/15/19 14:22 78-year-old female with dysuria and frequency 4 days and is under the treatment of her urologist on an antibiotic which is not helping her. Past History - Past Medical History Allergies/Adverse Reactions: Allergies Allergy/AdvReac Type Severity Reaction Status Date / Time morphine Allergy Mild Verified 07/15/19 13:32 aspirin Allergy Verified 07/15/19 13:32 Home Medications: Ambulatory Orders Alprazolam [Xanax] 0.25 mg PO PRN PRN 05/18/14 Nebivolol HCl [Bystolic] 5 mg PO DAILY 12/12/16 Clopidogrel Bisulfate [Plavix -] 75 mg PO DAILY #30 tablet 09/28/17 Nitroglycerin Sublingual [Nitrostat -] 0.3 mg SL [id number] #1 btl 09/28/17 Ciprofloxacin [Cipro -] 250 mg PO BID #14 tablet 01/30/18 Ciprofloxacin/Ciprofloxa HCl [Cipro Xr 500 mg Tablet] 500 mg PO DAILY #3 tbmp.24hr 01/30/18 Cephalexin [Keflex] 500 mg PO QID #35 capsule 07/15/19 Anemia: No Asthma: No Cancer: No Cardiac Disorders: Yes (SOB,PALPIATATIONS) CVA: No COPD: No CHF: No Dementia: No Diabetes: No GI Disorders: Yes (ULCER) Disorders: No HTN: Yes Hypercholesterolemia: No Liver Disease: No Psychiatric Problems: Yes (ANXIETY.) Seizures: No Thyroid Disease: No - Surgical History Abdominal Surgery: No Appendectomy: No Cardiac Surgery: No Cholecystectomy: No Lung Surgery: No Neurologic Surgery: No Orthopedic Surgery: No - Immunization History Immunization Up to Date: Yes - Suicide/Smoking/Psychosocial Hx Smoking Status: No Smoking History: Never smoked Have you smoked in the past 12 months: No Number of Cigarettes Smoked Daily: 0 Hx Alcohol Use: No Drug/Substance Use Hx: No Substance Use Type: None Hx Substance Use Treatment: No Review of Systems - Review of Systems Constitutional: No: Chills, Diaphoresis, Fever, Malaise, Night Sweats : Yes: Dysuria, Frequency *Physical Exam - Vital Signs Last Vital Signs Temp Pulse Resp BP Pulse Ox 98.6 F 78 16 163/61 97 07/15/19 13:29 07/15/19 13:29 07/15/19 13:29 07/15/19 13:29 07/15/19 13:29 - Physical Exam Comments: 07/15/19 14:21 HEAD: NC/AT EYES: Conjuntiva clear MS: Full ROM in all joints without edema NEUROLOGIC: No gross sensory or motor deficits, NVID SKIN: Normal color and temperature no lesions or rashes ED Treatment Course - ADDITIONAL ORDERS Additional order review: Laboratory Results 07/15/19 13:34 Urine Color Yellow Urine Appearance Clear Urine pH 6.5 Ur Specific [place] 1.005 L Urine Protein Negative Urine Glucose (UA) Negative Urine Ketones Negative Urine Blood Trace Urine Nitrite Negative Urine Bilirubin Negative Urine Urobilinogen 0.2 Ur Leukocyte Esterase 1+ H Urine WBC (Auto) 5 Urine RBC (Auto) 1 Urine Casts (Auto) 0 U Epithel Cells (Auto) 0.9 Urine Bacteria (Auto) 1.0 Medical Decision Making - Medical Decision Making 07/15/19 14:20 78 female with urinary frequency and urgency 4 days. Under the care of a urologist for frequent UTIs. *DC/Admit/Observation/Transfer Diagnosis at time of Disposition: Cystitis - Discharge Dispostion Disposition: HOME Condition at time of disposition: Stable Decision to Admit order: No - Prescriptions Prescriptions: Cephalexin [Keflex] 500 mg PO QID #35 capsule - Referrals Referrals: ON STAFF,NOT [Primary Care Provider] - - Patient Instructions Printed Discharge Instructions: DI for Urinary Tract Infection (UTI), Urinary Tract Infection Additional Instructions: Please follow-up with your urologist in 1-2 days without fail for further evaluation and treatment options. Please start the antibiotics today and take the entire course. - Post Discharge Activity
== END 2019-07-15 14:27 | disposition home or self-care (01) ==
LOC: JERFT 13:19
DX: R39.15 Urgency of urination (principal); N30.00 Acute cystitis without hematuria; Z87.440 Personal history of urinary (tract) infections; I10 Essential (primary) hypertension; F41.9 Anxiety disorder, unspecified
CPT/HCPCS: 81003; 87086; 99281-25

== ENCOUNTER 2019-10-21 09:18 | Day surgery (SDC) | payer OTHER ==
[2019-10-20 15:48] VITALS: BMI 20.5
[2019-10-21 11:02] VITALS: TEMP 97.9
[2019-10-21 11:27] VITALS: PULSE 80
[2019-10-21 12:42] VITALS: BP 166/60
== END 2019-10-21 12:36 | disposition home or self-care (01) ==
LOC: JASU-ENDO 09:18
PROVIDERS: ATTEND Internal Medicine Gastroenterology
PROC: 0DJD8ZZ Inspection of Lower Intestinal Tract, Via Natural or Artificial Opening Endoscopic (ICD-10-PCS; principal; 2019-10-21 10:30)
DX: K57.30 Diverticulosis of large intestine without perforation or abscess without bleeding (principal); R10.9 Unspecified abdominal pain